=== PATIENT | female | born 1960 | race Caucasian/White ===

== ENCOUNTER → 2017-07-15 17:06 | Outpatient (CLI) | payer MEDICAID, SELFPAY ==
--- NOTE | 2017-07-15 | BRBX_PTH ---
PATIENT: SKY CHAVEZ LOC: [facility] U#:[id number] AGE/SX: 65/F ROOM: RE07/15/[address]: Dr. Ebony Madison MD : 1960 BED: DIS: SPEC #: [id number] RECD: 07/15/17 16:38 STATUS: CARLOS TANG #: [id number] FRANCINE: 07/15/17 00:[address]: Ebony Madison DEPT: SURGICAL PATHOLOGY RECD BY: Han Wilson ENTERED: 07/16/17 07:02 SP TYPE: BREAST BX OTHR DR: Dr. Callie Cohn MD Tissues: Left breast, NOS Procedures: Surgery Specimen Level IV HEADER OPERATION: Abnormal mammogram PRE-OP DIAGNOSIS: Left breast mass TISSUE SUBMITTED: Left breast ultrasound-guided mammotome MICROSCOPIC DIAGNOSIS Left breast, ultrasound-guided mammotome core biopsy: Complex atypical papillary neoplasm. Negative for invasive carcinoma in the submitted specimen. SJ:saul 07/17/17 COMMENT Correlation with clinical, radiologic findings and appropriate follow up are necessary. MICROSCOPIC DESCRIPTION Slides are reviewed. GROSS DESCRIPTION Received is one container labeled with the patient's name and not further designated. The specimen consists of multiple elongated fragments of cornell-yellow fibroadipose tissue that in aggregate measure 2.5 x 1 x 0.1 cm. The entire specimen is submitted in one cassette. / SJ:rg 07/16/17 TC:5 CPT: 97235
== END ==
PROVIDERS: Family Provider Internal Medicine; PCP Internal Medicine; Visit Provider Surgery
DX: N63.0 Unspecified lump in unspecified breast (principal)
CPT/HCPCS: 88305

== ENCOUNTER 2017-07-25 08:03 | Day surgery (SDC) | payer MEDICAID, SELFPAY ==
--- NOTE | 2017-07-25 | BREAST_PTH ---
PATIENT: SKY CHAVEZ LOC: [facility] [place] U#:[id number] AGE/SX: 57/F ROOM: RE07/25/[address]: Dr. Ebony Madison MD : 1960 BED: DIS: 07/25/2017 SPEC #: [id number] RECD: 07/25/17 14:25 STATUS: CARLOS TANG #: [id number] FRANCINE: 07/25/17 00:[address]: Ebony Madison DEPT: SURGICAL PATHOLOGY RECD BY: Santiago Hyde ENTERED: 07/25/17 14:26 SP TYPE: BREAST OTHR DR: Dr. Callie Cohn MD Tissues: Left breast, NOS Procedures: Surgery Specimen Level V HEADER OPERATION: Breast biopsy, NL PRE-OP DIAGNOSIS: Atypical papillary neoplasm left breast TISSUE SUBMITTED: Left breast biopsy, 2 short sutures ? posterior, 2 long sutures ? medial, 1 long suture ? lateral, skin ? 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 Intraductal hyperplasia with multifocal atypical ductal hyperplasia. Negative for malignancy. ALESHA:saul 07/29/17 COMMENT Please make reference to previous specimen ([id number]) left breast, ultrasound-guided mammotome core biopsy with diagnosis of complex atypical papillary neoplasm. Case has been reviewed in consultation with Dr. Delarosa who concurs with the above diagnosis. IDC:AM MICROSCOPIC DESCRIPTION Slides are reviewed. GROSS DESCRIPTION Received in fixative is one container labeled with the patient's name and designated left breast biopsy. The specimen consists of cornell-yellow fibrofatty tissue, wire-guided, measuring 6 x 4 x 2 cm and weighing 25.4 gm. An ellipse of pink-cornell skin is present on the anterior surface measuring 2 x 0.2 cm. No cutaneous lesions are identified. The specimen is differentially inked as follows: anterior ? yellow, posterior ? black, superior ? blue, inferior ? green, medial ? red and lateral ? orange. Serial sections reveal a possible hemorrhagic cavity measuring 2.5 x 1.8 x 0.5 cm. The biopsy cavity closely approximates the inked medial margin of excision. The specimen is totally submitted in ten cassettes. / ARAM:saul 07/26/17 TC:5 CPT: 10253
[2017-07-25 08:44] VITALS: BP 143/63; PULSE 48; RESP 16; TEMP 36.3; O2SAT 100; BMI 55.6
--- NOTE | 2017-07-25 11:02 | PCM.DC.BS ---
Discharge Diet: No Restrictions Discharge Activity: Return to Normal Activity, May not drive while taking narcotic pain medications. Call your doctor if your incision/area has: Continuous Slow Oozing, Foul Smelling Discharge Call your doctor if you observe: Fever of 101 or Higher Additional Dressing/Incision Instructions:: Leave dressing in place. May get wet in shower. Do not soak - no tub baths/swimming Allergies/Adverse Reactions: Allergies acetaminophen [From Midol] Allergy (Verified 07/23/17 11:12) Other celecoxib [From Celebrex] Allergy (Verified 07/23/17 11:12) Other citalopram hydrobromide [From Celexa] Allergy (Verified 07/23/17 11:12) Other pamabrom [From Midol] Allergy (Verified 07/23/17 11:12) Other Medications to take at Discharge Atenolol [Tenormin (beta daryl)] 25 mg PO DAILY 03/23/14 Ibuprofen [Motrin] 200 mg PO Q4H PRN PRN 03/23/14 Primary Care Physician: Callie Cohn MD [Primary Care Provider] - Please Follow Up With: Teresa Torres PA-C - call When: to be seen in 7-10 days, please call for date and time, thank you
--- NOTE | 2017-07-25 11:05 | DCINST_ITS ---
Discharge Diet: No Restrictions Discharge Activity: Return to Normal Activity, May not drive while taking narcotic pain medications. Call your doctor if your incision/area has: Continuous Slow Oozing, Foul Smelling Discharge Call your doctor if you observe: Fever of 101 or Higher Additional Dressing/Incision Instructions:: Leave dressing in place. May get wet in shower. Do not soak - no tub baths/swimming Allergies/Adverse Reactions: Allergies acetaminophen [From Midol] Allergy (Verified 07/23/17 11:12) Other celecoxib [From Celebrex] Allergy (Verified 07/23/17 11:12) Other citalopram hydrobromide [From Celexa] Allergy (Verified 07/23/17 11:12) Other pamabrom [From Midol] Allergy (Verified 07/23/17 11:12) Other Medications to take at Discharge Atenolol [Tenormin (beta daryl)] 25 mg PO DAILY 03/23/14 Ibuprofen [Motrin] 200 mg PO Q4H PRN PRN 03/23/14 Primary Care Physician: Callie Cohn MD [Primary Care Provider] - Please Follow Up With: Teresa Torres PA-C - call When: to be seen in 7-10 days, please call for date and time, thank you
--- NOTE | 2017-07-25 11:05 | PCM.IMDPSTOP ---
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
[2017-07-25] MEDS: Cefazolin 2 GM in 0.9% Normal Saline 100 ML IV (11:20)
--- NOTE | 2017-07-25 11:30 | HPBI_ITS ---
SURGICAL BREAST SPECIMEN RADIOGRAPH CLINICAL: Document presence of mass in biopsy specimen. FINDINGS: Specimen shows presence of mass. Electronically Signed: Mino Sanz MD at 12:43 EST Tel [phone], Service support , HPBI/Breast Biopsy Specimen
[2017-07-25] MEDS: Bupiv/Epi 0.5% Mpf 30 ML Vial (11:40)
[2017-07-25 12:08] VITALS: BP 118/57; BP 143/63; PULSE 65; RESP 16; TEMP 36.8; O2SAT 97
--- NOTE | 2017-07-25 12:11 | OP.PCM_ITS ---
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 The patient?s left breast was placed in the opening at the head of the table. A dredge worker compression mammogram was then obtained. The marker clip that was previously placed was identified. Stereo pictures of the lesion were then taken for XYZ coordinates. The Kopans needle was then positioned where it would be entering into the patient?s breast. The skin at this site was then cleansed with a surgical skin preparation. The skin and subcutaneous tissues at this site were then infiltrated with 1% xylocaine. The Kopans needle was then positioned into the patient?s breast at the proper coordinates of depth. A dredge worker film was obtained which revealed the wire in proper position. The patient was then placed in the supine position and the wire was taped into place. A unilateral mammogram in the CC and MLO view were then taken for use in the OR. The patient tolerated this portion of the procedure well and was brought to the AC awaiting surgery in the OR. The patient was then brought to the Operating Room and placed on the operating table in the supine position. A wire had already been placed in the stereotactic biopsy room in the radiology department as described above. The left breast with the wire in placed was then prepped with a sterile surgical skin preparation and sterile surgical drapes were placed. The skin and subcutaneous tissues at the site of the breast lesion was then infiltrated with local anesthetic. A transverse skin incision was then made with a 15 blade scalpel lateral aspect of the left breast and carried down through to the subcutaneous tissues. Hemostasis was controlled with electrocautery. The breast tissue surrounding the wire was then carefully palpated out and from the surrounding tissues using electrocautery. The breast tissue , once from the breast, was then forwarded to the radiology department , where a specimen mammogram revealed that the lesion was within the specimen. I reviewed this specimen mammogram personally and appropriate decision was made regarding my review of this specimen mammogram. The breast tissue was then forwarded to pathology for analysis. The wound cavity was carefully examined. No further suspicious tissue was palpated or visualized. Hemostasis was carefully controlled with electrocautery. The subdermal tissues were then approximated with vicryl suture. The incision was then reapproximated close using running monocryl suture. Cavilon and steristrips were then placed to reinforce the skin closure. A sterile dressing was then applied. The patient was then brought to the Recovery Room in stable condition. - Complications none noted - Admit VTE Documentation VTE Present on Admission: Yes VTE Mechan Device Prophylaxis: SCD's
[2017-07-25 12:15] VITALS: BP 111/70; BP 143/63; PULSE 59; RESP 16; O2SAT 99
[2017-07-25 12:30] VITALS: BP 128/68; BP 143/63; PULSE 45; RESP 16; O2SAT 100
[2017-07-25 12:42] VITALS: BP 120/68; BP 143/63; PULSE 59; RESP 16; TEMP 36.2; O2SAT 98
[2017-07-25 13:40] VITALS: BP 143/63
== END 2017-07-25 14:07 | disposition home or self-care (01) ==
LOC: SDC 08:03 → AC 08:05
PROVIDERS: Family Provider Internal Medicine; PCP Internal Medicine; Visit Provider Surgery
PROC: (CPT 19125; principal; 2017-07-25 10:45)
DX: N60.12 Diffuse cystic mastopathy of left breast (principal); D49.3 Neoplasm of unspecified behavior of breast; I10 Essential (primary) hypertension; K21.9 Gastro-esophageal reflux disease without esophagitis; J45.909 Unspecified asthma, uncomplicated; Z87.891 Personal history of nicotine dependence
CPT/HCPCS: 19125; 19281; 76098; 88307; J3010; J7120; J2405

== ENCOUNTER 2019-11-24 11:50 | Day surgery (SDC) | payer BC, SELFPAY ==
--- NOTE | 2019-11-23 13:25 | PCM.HP.BLA ---
History and Physical Date of Admission: 11/24/19 Apryl Trinidad 1960 ?? REFERRING PHYSICIAN: Farnaz Humphrey ([facility]) ? ? HPI: The patient is a 59 year old female presents with abnormal left breast radiographs with history of atypical ductal hyperplasia of left breast in the past and new findings of atypical ductal hyperplasia on most recent breast biopsy. . She denies palpable breast masses. Denies nipple discharge. She underwent left US guided needle core breast biopsy 07/15/17 with findings of complex atypical papillary neoplasm A follow up left breast excisional breast biopsy via wire localization on 07/25/17. 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 Intraductal hyperplasia with multifocal atypical ductal hyperplasia. Negative for malignancy. ? Mammograms 10/13/2019 There is a 5 mm focal asymmetry in the left breast at 1 o'clock. ?There also is a 5 mm focal asymmetry in the left breast at 1 o'clock. No significant masses, calcifications, or other findings are seen in the breast. ? US 10/13/2019 There is 0.7 cm x 0.8 cm x 0.6 cm oval mass in the left breast at 2 o'clock middle depth 8 cm from the nipple. ?This oval mass is hypoechoic. ?This correlates with mammography findings. There also is 0.7 cm x 0.6 cm x 0.4 cm oval mass in the left breast at 1 o'clock posterior depth 8 cm from the nipple. ?This oval mass is hypoechoic. ?This correlates with mammography findings. IMPRESSION: SUSPICIOUS FINDING - BIOPSY SHOULD BE CONSIDERED The 0.7 cm x 0.8 cm x 0.6 cm oval mass in the left breast at 2 o'clock middle depth is suspicious of malignancy. ?An ultrasound guided biopsy is recommended. The 0.7 cm x 0.6 cm x 0.4 cm oval mass in the left breast at 1 o'clock posterior depth is suspicious of malignancy. ?An ultrasound guided biopsy is recommended. Most recently, Ms Trinidad is s/p left breast needle core biopsy on 11/06/2019 She had previous excisional biopsy via wire localization of left breast for atypical papillary neoplasm on 07/25/2017 for which final pathology revealed - MICROSCOPIC DIAGNOSIS Left breast, needle localization biopsy: ? 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 ? Intraductal hyperplasia with multifocal atypical ductal hyperplasia. ? Negative for malignancy. She denies any problems from her biopsy. ? ? PAST MEDICAL HISTORY ? Esophageal reflux ? ? Lipoma ? ? right anterior thigh ? Obesity, unspecified ? ? PAROX ATRIAL TACHYCARDIA, rates 250 ? ? Plantar fascial fibromatosis ? ? left ? Unspecified asthma(493.90) ? ? PAST SURGICAL HISTORY ? ABLAT HRT DYSRHYTHM FOCUS ? ? ? APPENDECTOMY ? ? ? BREAST BIOPSY Left 07/25/2017 ? HYSTEROSCOPY, SURGICAL; WITH SAMPLI ? 03/30/14 ? PMB, endometrial hyperplaisia, simple w/o atypia ? ? Current Outpatient Medications ? nystatin (MYCOSTATIN) powder Apply 1 application to affected area three times daily. ? atenolol (TENORMIN) 50 mg tablet Take 0.5 tablets by mouth once daily. ? mometasone (ELOCON) 0.1 % ointment Apply 1 application to affected area once daily. ? IBUPROFEN ORAL Take by mouth. ? albuterol HFA (PROAIR HFA) 90 mcg/actuation inhaler Inhale 2 Puffs as instructed every 4 hours as needed. ? ? ALLERGIES: Celebrex [Celecoxib]; Celexa [Citalopram Hydrobromide]; Midol [Acetaminophen-Pyrilamine Mal] ? PERSONAL HISTORY: Social History ?Tobacco Use ? Smoking status: Former Smoker ? ? Packs/day: 1.00 ? ? Years: 2.00 ? ? Pack years: 2.00 ? ? Types: Cigarettes ? ? Last attempt to quit: 05/20/1979 ? ? Years since quittin.4 ? Smokeless tobacco: Never Used Substance Use Topics ? Alcohol use: No ? Drug use: No ? FAMILY HISTORY ? Diabetes Mother ? ? heart problems at 48 ? Heart Mother ? ? Kidney Disease Mother ? ? Diabetes Father ? ? heart problems ? Heart Father ? ? AAA ? Colon Cancer Paternal Grandfather ? ? Heart Paternal Grandfather ? ? Developmental problem Child ? ? Diabetes Maternal Aunt ? ? Heart Paternal Grandmother ? ? Cancer Brother ? ? The review of systems data was entered by the nurse and reviewed by me ? Nursing Notes: REVIEW OF SYSTEMS: General: The patient notes fatigue, denies weight loss, notes weight gain, denies feeling hot, and denies feelings of cold. Eyes: The patient denies glaucoma, denies eye injury/surgery, wears glasses or contacts. Ear/Nose/Throat: The patient notes allergies, denies hayfever, denies ear infections, and denies bloody noses. Cardiovascular: The patient denies chest pain, denies heart disease, denies high blood pressure,denies cardiac stent, denies prior heart attack, notes irregular heart beat, denies high cholesterol, denies poor circulation, denies heart failure, other cardiac issues, denies claudication, denies cold feet, denies peripheral arterial stent. Respiratory: The patient denies tuberculosis, denies pneumonia, denies frequent cough, denies pulmonary embolism, denies shortness of breath, and denies coughing up blood. Gastrointestinal: The patient denies difficulty swallowing, notes acid reflux, denies ulcers, denies vomiting, denies jaundice/hepatitis, denies gallbladder problems, denies black or tarry stools, denies hemorrhoids, denies bleeding from rectum, denies diverticulitis, denies constipation, denies diarrhea, denies loss of stool control, and denies hernias. Kidney/Bladder: The patient denies kidney stones, denies urine infections, and denies bloody urine. Skin: The patient denies a history of skin cancer, denies bleeding/changing moles, and denies a history of skin rash. Neurologic: The patient denies a history of epilepsy/convulsions, denies headaches, denies head/spinal injuries, and denies stroke/TIA. Psychiatric: The patient denies psychiatric medications, denies depression, and denies voices, denies substance abuse. Endocrine: The patient denies thyroid disorders, denies diabetes, and denies hormonal problems. Hematologic: The patient denies a history of bruising, denies bleeding, and denies anemia, denies blood clots. Infections: The patient notes a history of measles and mumps, denies rheumatic fever, and denies sexually transmitted diseases. Musculoskeletal: The patient denies back pain/injury, denies back problems, denies sciatica, notes knee/foot trouble, denies arthritis, or denies gout. When was patient's last Mammogram screening? 09/2019 Last Colonoscopy: unknown Genesis Wright RN ? PHYSICAL EXAMINATION: General: The patient is 59 year old female, well nourished, well hydrated in no acute distress. The patient is oriented to time, place, and person. VITALS: Blood pressure 140/90, pulse 103, temperature 36.5 ?C (97.7 ?F), temperature source Temporal Artery, weight (!) 149.2 kg (329 lb), last menstrual period 06/12/2010, SpO2 99 %. Body mass index is 59.03 kg/m?. Head ? Normocephalic. EOM intact with sclera clear and no icterus noted. Mouth with mucus membranes moist. Neck - supple with no jugular venous distention noted. Trachea is midline. No carotid bruits noted. No thyroid enlargement or thyroid nodules detected. No masses noted. Chest/breast ? no asymmetry of breasts noted, bilateral ptotic breasts, no suspicious skin lesions noted - slight brawny skin discoloration of inferior aspect of bilateral breast folds, no nipple discharge and both nipples everted, no breast masses noted Lungs ? clear to auscultation. Normal breath sounds. No rales/rhonchi/wheezing noted. No labored breathing noted, such as retractions. No cough heard. Heart ? normal S1 and S2 auscultated. No rubs/clicks/murmurs noted. Regular rate. Abdomen ? soft and benign. Normal bowel sounds No abdominal bruits noted. Difficult to determine if any masses or organomegaly due to body habitus. Extremities ? no calf tenderness noted. No pitting edema noted. Skin ? normal skin integrity. Lymph ? no cervical adenopathy detected, no supraclavicular adenopathy detected, no axillary adenopathy detected Neurological ? gait normal, no focal deficits noted Psych ? calm and appropriate RADIOLOGIC STUDIES: As Noted ? ? IMPRESSION: atypical ductal hyperplasia of left breast ? PLAN: I have discussed the above with the patient. Given the findings of atypical papillary neoplasm by needle core biopsy, I have recommended excisional breast biopsy via wire localization. I have explained the procedure to the patient. I have counseled the patient as to the risks of the procedure, including but not limited to: infection, bleeding, injury to any blood vessels/nerves, scar tissue, cosmetic deformity, wound infections, complications of anesthesia, etc. ? the patient understands. The patient wishes to proceed. I have answered all questions to the patient?s satisfaction and the patient has no further questions. The patient was offered a surgery/procedure . The provider and patient have discussed in detail the risk of exposure to and/or potential harm posed by the COVID-19 virus with having a surgery/procedure at this time versus the risk of delaying the surgery/procedure. It is not possible to know either the risk of delaying the surgery or procedure or chance of getting an infection with perfect accuracy, but a joint decision was made between the patient and the provider to proceed at this time with the scheduled surgery/procedure. Return to Clinic: The patient is instructed to follow-up with me after the procedure
[2019-11-24] VITALS (10 sets, daily range): BP systolic 91–121; BP diastolic 51–74; PULSE 56–82; RESP 16–20; TEMP 36.6–36.7; O2SAT 93–100; BMI 56.7
--- NOTE | 2019-11-24 | IMM_PTH ---
PATIENT: SKY CHAVEZ [place] [facility] [place][id number] AGE/SX: 59/F ROOM: RE11/24/[address]: Dr. Ebony Madison MD : 1960 BED: DIS: 11/24/2019 SPEC #: [id number] RECD: 11/27/19 12:14 STATUS: CARLOS REQ #: [id number] FRANCINE: 11/24/19 00:[address]: Ebony Madison DEPT: IMMUNOHISTOCHEMISTRY RECD BY: Flavia Hernandes ENTERED: 11/27/19 12:15 SP TYPE: IMMUNO OTHR DR: Dr. Callie Cohn MD Tissues: Left breast, NOS Procedures: CALPONIN-1 (add) CK5-6 (add) CK8 (add) MORENO-2 (add) E-CAD (add) HER2 GOSIA (add) KI-67 (add) P53 (add) SD (add) P40 (add) ER (initial) PHYSICIAN & INSTITUTION [address] [address] SPECIMEN INFORMATION: Tissue Source: Left breast biopsy Clinical Info: Atypical ductal ectasia left breast Specimen Number: [id number] #12 CPT code: 09410, 94718 x7, 63658 x3 METHODOLOGY: Deparaffinized sections of prefer/formalin-fixed tissue or PAP/DQ stained slides are incubated with monoclonal/polyclonal antibodies/oligonucleotide probes. Localization is made via biotin free immunoperoxidase method. Appropriate controls are performed and reacted as expected. Results on target cell population are indicated in the following table: RESULTS: ANTIBODY / CLONE RESULT Block 12 P53 (DO-7) negative Ki-67 (30-9) positive, low CK8 (46ulauU38) positive CK5-6 (D5 & 1684) positive Calponin-1 (ZB869D) positive P40 (BC28) positive E-Cad (ECH-6) positive MORENO-2 (SP21) negative MORPHOMETRIC ANALYSIS ER (clone 6F11) positive, >95%, strong intensity SD (clone 16/1E2) positive, >95%, strong intensity Her-2Neu (clone CB11) negative, 0 The prognostic test for HER2 is performed on formalin-fixed paraffin embedded tissue. A 3+ (positive) staining pattern is defined as intense, homogeneous, complete, circumferential membranous staining in >10% of contiguous tumor cells. A similar weak (2+) staining pattern is interpreted as equivocal. MAREK follow-up testing is recommended for all equivocal cases. Positivity/negativity for ER/SD is reported if > or < 1% of the tumor cells are immuno- reactive, respectively. The ASCO/CAP criteria is used for scoring. Reference: Journal of Clinical Oncology, 2013; 31:0833-7776 & 2010; 16:1922-5166. Duration of fixation: 28 Hrs; Sample Adequate: Yes. These assays have not been validated on decalcified tissues. Results should be interpreted with caution given the likelihood of false negativity on decalcified specimens. These tests were developed and their performance characteristics determined by [facility]. They may not have been cleared or approved by the U.S. Food and Drug Administration. The FDA has determined that such clearance or approval is not necessary. The above immunohistochemical/dualISH markers are ordered and reviewed by the Pathologist. INTERPRETATION: Left breast, lumpectomy: Ductal carcinoma in situ. AM:saul 11/30/19
--- NOTE | 2019-11-24 12:32 | BI_ITS ---
SURGICAL BREAST SPECIMEN RADIOGRAPH CLINICAL: Document presence of tissue clip marker in biopsy specimen. FINDINGS: Specimen shows presence of tissue clip marker. Electronically Signed: Mino Sanz, at 14:49 EDT , Service support , BI/Breast Biopsy Specimen
[2019-11-24] MEDS: Lactated Ringers 1,000 ML 75 ML IV ×2 (12:46→16:47)
--- NOTE | 2019-11-24 14:15 | BRBX_PTH ---
PATIENT: SKY CHAVEZ LOC: [facility] [place] U#:[id number] AGE/SX: 59/F ROOM: RE11/24/[address]: Dr. Ebony Madison MD : 1960 BED: DIS: 11/24/2019 SPEC #: [id number] RECD: 11/24/19 15:43 STATUS: CARLOS RELis #: [id number] FRANCINE: 11/24/19 14:[address]: Ebony Madison DEPT: SURGICAL PATHOLOGY RECD BY: Jamil Tucker ENTERED: 11/25/19 09:13 SP TYPE: BREAST BX OTHR DR: Dr. Callie Cohn MD Tissues: Left breast, NOS Procedures: Surgery Specimen Level V HEADER OPERATION: Breast biopsy with wire localization PRE-OP DIAGNOSIS: Atypical ductal hyperplasia of left breast TISSUE SUBMITTED: Left breast biopsy MICROSCOPIC DIAGNOSIS Left breast, lumpectomy: Ductal carcinoma in situ. See cancer checklist below. AM:saul 11/30/19 COMMENT DUCTAL CARCINOMA IN SITU SUMMARY: Procedure - lumpectomy Specimen - partial breast Laterality - left breast Size (extent of DCIS): Estimated size (extent) - 8 x 5 x 3 mm Number of blocks - 5 of 12 blocks Architectural pattern - cribriform with focal necrosis Nuclear grade - 1 Necrosis - focal Margins - uninvolved by in situ carcinoma. Distance from closest inked margin - 3 mm Regional lymph nodes - not submitted Microcalcifications - focally present Additional Pathologic Findings - changes of previous biopsy Ancillary Studies from previous specimen ([id number]): ER - >95%, strong intensity MN - >95%, strong intensity Her2 suresh (IHC) - 0 (negative) Ki67 - low Clinical history - atypical ductal hyperplasia of left breast. Pathologic Staging: Tcis(DCIS) Nx Mx The above summary is in compliance with [employer] (CAP) Cancer Protocols Checklist and [place] [employer] Committee on Cancer (AJCC), Staging Manual, 8th Ed. Case has been reviewed in consultation with Dr. Natarajan who concurs with the above diagnosis. IDC:[id number] MICROSCOPIC DESCRIPTION Slides are reviewed. GROSS DESCRIPTION Received in fixative is one container labeled with the patient's name and designated left breast biopsy. The specimen consists of an unoriented piece of cornell-yellow fibroadipose tissue with needle localization measuring 9 x 7 x 4 cm. Sections reveal yellow adipose cut surfaces mixed with cornell-white fibrous area. The smooth surface is inked. No mass lesion is identified. The specimen is inked and serially sectioned and reveal cornell-yellow adipose cut surfaces without any mass lesion. Sections reveal cornell-yellow adipose cut surfaces with scant fibrous area and without any mass lesion. Bolt Threader sections are submitted in 12 cassettes. Sections are submitted after additional fixation. / ALESHA:saul 11/25/19 TC:0 CPT: 17513
--- NOTE | 2019-11-24 15:46 | OP.PCM_ITS ---
Report of Operation Date of Procedure: 11/24/19 Pre-Operative Diagnosis: atypical ductal hyperplasia fo left breast biopsy Post-Operative Diagnosis: same Surgery/Procedure Performed:: left breast biopsy via wire localization Description of Surgical Findings:: upper outer quadrant lesion security public safety officer: Светлана Nath Type of Anesthesia:: General Anesthesiologist: Eitan Kirk Specimen's removed: left breast tissue Estimated Blood Loss (mL): 30 ml Fluids Replaced: 800 ml RL Description of Procedure: After informed consent was given, the patient was brought into the Breast Stereotactic Radiology suite. Appropriate time out protocol was followed. She was then placed in the prone position on the [place] stereotactic table. The patient?s left breast was placed in the opening at the head of the table. A athletic scout compression mammogram was then obtained in the CC view. The marker clip that was previously placed was identified. Stereo pictures of the lesion were then taken for XYZ coordinates. The Kopans needle was then positioned where it would be entering into the patient?s breast. The skin at this site was then cleansed with a surgical skin preparation. The skin and subcutaneous tissues at this site were then infiltrated with 1% xylocaine. The Kopans needle was then positioned into the patient?s breast at the proper coordinates of depth. A athletic scout film was obtained which revealed the wire in proper position. The patient was then placed in the supine position and the wire was taped into place. A unilateral mammogram in the CC and MLO view were then taken for use in the OR. The patient tolerated this portion of the procedure well and was brought to the AC awaiting surgery in the OR. The patient was then brought to the Operating Room. Appropriate time out protocol was followed. She was then placed on the operating table in the supine position. A wire had already been placed in the stereotactic biopsy room in the radiology department as described above. The left breast with the wire in placed was then prepped with a sterile surgical skin preparation and sterile surgical drapes were placed. The skin and subcutaneous tissues at the site of the breast lesion was then infiltrated with 1% xylocaine with epinephrine. A transverse curvilinear skin incision was then made with a 15 blade scalpel in the upper outer quadrant of the patient's breast. It was carried down through to the subcutaneous tissues. Hemostasis was controlled with electrocautery. The wire was then palpated out and brought into the wound from outside. The breast tissue surrounding the wire was then carefully palpated out and from the surrounding tissues using electrocautery. The breast tissue, once from the breast, was then forwarded to the radiology department. I personally viewed the specimen mammogram and noted that the marker clip was within the specimen. The breast tissue was then forwarded to pathology for analysis. No further suspicious tissue was palpated or visualized. Hemostasis was carefully controlled with electrocautery. The subdermal tissues were then approximated with vicryl suture. The incision was then reapproximated close using running monocryl suture. Cavilon and steristrips were then placed to jessica nforce the skin closure. A sterile dressing was then applied. The patient was then brought to the Recovery Room in stable condition. - Complications none noted - Admit VTE Documentation VTE Present on Admission: Yes VTE Mechan Device Prophylaxis: SCD's
--- NOTE | 2019-11-24 16:02 | PCM.DC.BS ---
Discharge Diet: No Restrictions Discharge Activity: Return to Normal Activity, May not drive while taking narcotic pain medications. Return to work on:: 12/01/19 Call your doctor if your incision/area has: Continuous Slow Oozing, Foul Smelling Discharge Call your doctor if you observe: Fever of 101 or Higher Additional Dressing/Incision Instructions:: Leave dressing in place. May get wet in shower. Do not soak - no tub baths/swimming. Ice packs to area for comfort. Wear supportive bra during the day Allergies/Adverse Reactions: Allergies celecoxib [From Celebrex] Allergy (Verified 07/23/17 11:12) Other citalopram hydrobromide [From Celexa] Allergy (Verified 07/23/17 11:12) Other pamabrom [From Midol] Allergy (Verified 07/23/17 11:12) Other acetaminophen [From Tylenol] Adverse Reaction (Verified 11/24/19 12:10) Nausea Medications to take at Discharge RX: Atenolol [Tenormin (beta daryl)] 25 mg PO DAILY 03/23/14 RX: Ibuprofen [Motrin] 200 mg PO Q4H PRN PRN 03/23/14 Oxycodone [Oxyir] 5 mg PO Q6H PRN PRN 5 Days #10 tab 07/25/17 Loratadine/Pseudo 240/10 [Claritin-D 24 Hr] 1 tab PO DAILY 11/19/19 Oxycodone [Oxyir] 5 mg PO Q12H PRN PRN 2 Days #4 tab 11/24/19 The following prescriptions were given: Oxycodone [Oxyir] 5 mg PO Q12H PRN PRN 2 Days #4 tab PRN Reason: Pain Score 6-10/10 Prescription Printed Primary Care Physician: Callie Cohn MD [Primary Care Provider] - Please Follow Up With: Ebony Madison MD - call if any concerns/problems When: the office will set up a [facility] appointment with you next week
[2019-11-24] MEDS: Ibuprofen 600 MG Tablet PO (16:53)
== END 2019-11-24 18:35 | disposition home or self-care (01) ==
LOC: SDC 11:52 → AC 11:52
PROVIDERS: Anesthesiology; PCP Internal Medicine; Referring Provider Surgery; Visit Provider Surgery
PROC: (CPT 19125; principal; 2019-11-24 14:00)
DX: C50.912 Malignant neoplasm of unspecified site of left female breast (principal); N60.92 Unspecified benign mammary dysplasia of left breast; K21.9 Gastro-esophageal reflux disease without esophagitis; J45.909 Unspecified asthma, uncomplicated; M72.2 Plantar fascial fibromatosis; Z88.6 Allergy status to analgesic agent; Z79.899 Other long term (current) drug therapy; Z80.0 Family history of malignant neoplasm of digestive organs; Z87.891 Personal history of nicotine dependence
CPT/HCPCS: 19125; 19281; 76098; 87635; 88305; 88307; 88341; 88342; G2023; J7120; A4216; J2405; U0003